=== PATIENT | male | born 1945 | race Caucasian/White ===

== ENCOUNTER → 2024-10-28 06:30 | Outpatient (REF) | payer MEDICARE, MEDICAID, SELFPAY ==
[2024-10-28 08:28] LABS: Hematocrit 41.5 % (40-54); Hemoglobin 13.7 g/dL (13.0-16.5); Mean Corp Hgb Conc 33.0 g/dL (32-36); Mean Corpuscular Volume 89.1 fL (80-94); Mean Platelet Vol. 9.0 fl (6.2-12.0); Platelet Count 461 K/mm3 (150-450); RBC Distribution Width CV 13.1 % (11.6-14.6); RBC Distribution Width SD 42.9 fl (35.1-43.9); Red Blood Count 4.66 M/mm3 (4.6-6.2); White Blood Count 12.9 K/mm3 (4.4-11.0)
[2024-10-28 08:42] LABS: AST(SGOT) 31 U/L (<=37); Alanine Aminotransfer ALT/SGPT 27 U/L (<=46); Albumin, Serum 3.3 g/dL (3.4-4.8); Alkaline Phosphatase 99 U/L (40-129); Anion Gap 15 (5-15); BUN 44 mg/dL (4-19); BUN/Creat Ratio 25.9 RATIO (10-20); Calcium,Total 10.4 mg/dL (7.6-11.0); Carbon Dioxide 25.2 mmol/L (21.0-32.0); Chloride 97 mmol/L (98-108); Globulin 3.8 g/dL (2.2-4.2); Glucose 117 mg/dL (70-99); Potassium 4.8 mmol/L (3.3-5.1)
== END ==
LOC: OLS.SANC 06:30
PROVIDERS: PCP Family Medicine; Referring Provider Internal Medicine; Visit Provider Internal Medicine
DX: N40.0 Benign prostatic hyperplasia without lower urinary tract symptoms (principal); N17.9 Acute kidney failure, unspecified; G93.41 Metabolic encephalopathy
CPT/HCPCS: 36415; 80053; 85027

== ENCOUNTER → 2024-10-29 13:00 | Outpatient (REF) | payer MEDICARE, MEDICAID, SELFPAY ==
[2024-10-30 08:31] LABS: Mucous, Urine 0 SEEN /hpf (<or=2+); Squamous Epithelial Cells - UA 0 SEEN /hpf (0-5)
[2024-10-30 08:56] LABS: Color, Urine Yellow (Yellow); Glucose, Dipstick Normal (Normal); Ketone-Dipstick 5 mg/dl (Negative); Leukocyte Esterase-Dipstick 100 /ul (Negative); Nitrite-Dipstick Negative (Negative); Occult Blood-Urine 250 /ul (Negative); Protein-Dipstick 100 mg/dl (Negative); Specific Gravity, Urine 1.025 (1.002-1.030); Urine Bilirubin Dipstick Negative (Negative)
[2024-10-30 09:05] LABS: Calcium Oxalate Crystals Ur 1+ /hpf (<or=2+); Red Blood Cells-Urine 10-25 SEEN /hpf (0-5); Yeast-Urine 1+ /hpf (None Seen)
== END ==
LOC: OLS.SANC 13:00
PROVIDERS: PCP Family Medicine; Visit Provider Internal Medicine
DX: R41.82 Altered mental status, unspecified (principal)
CPT/HCPCS: 81001; 87086; 87088